=== PATIENT | female | born 1960 | race Two or more races ===

== ENCOUNTER 2018-05-19 09:25 | Outpatient (CLI) | payer OTHER ==
[~2018-05-19 09:25] MED LIST: AMBIEN5 MG; CATAFLAM50 MG; CIPRO500 MG PO; METHOCARBAMOL500 MG PO; NABUMETONE500 MG PO; NORFLEX100 MG; PERCOCET 5/3251 TAB PO; PREVACID30 MG PO; PROVENTIL2.5 MG/3 M; SINGULAIR 10MG10 MG; [UNRECOGNIZED DRUG - OTHER]
== END 2018-05-19 09:54 | disposition home or self-care (01) ==
LOC: RAD 09:25
DX: M50.90 Cervical disc disorder, unspecified, unspecified cervical region (principal); M79.1 Myalgia; M51.36 Other intervertebral disc degeneration, lumbar region; M19.141 Post-traumatic osteoarthritis, right hand; M19.142 Post-traumatic osteoarthritis, left hand; M17.2 Bilateral post-traumatic osteoarthritis of knee; M72.2 Plantar fascial fibromatosis

== ENCOUNTER 2018-08-28 09:10 | Emergency (ER) | payer OTHER ==
[~2018-08-28] VITALS: Ht 152.4 cm; Wt 88.0 kg
[2018-08-28] MEDS ORDERED: SKELAXIN800 MG (09:31)
[2018-08-28] MEDS ORDERED: LORZONE750 MG (09:31)
== END 2018-08-28 14:43 | disposition home or self-care (01) ==
LOC: ER 09:10
DX: M54.5 Low back pain (principal)

== ENCOUNTER 2018-10-12 08:19 | Outpatient (CLI) | payer OTHER ==
[~2018-10-12 08:19] MED LIST changes: +LORZONE750 MG; +SKELAXIN800 MG
== END 2018-10-12 08:33 | disposition home or self-care (01) ==
LOC: SONOGRAMA 08:19
DX: R51 Headache (principal); Z76.0 Encounter for issue of repeat prescription; R22.1 Localized swelling, mass and lump, neck

== ENCOUNTER 2018-11-03 08:12 | Outpatient (CLI) | payer OTHER | END 2018-11-03 08:34 | disposition home or self-care (01) | LOC: LAB 08:12 | DX: R22.1 Localized swelling, mass and lump, neck (principal) ==

== ENCOUNTER 2018-11-05 07:08 | Outpatient (CLI) | payer OTHER | END 2018-11-05 07:21 | disposition home or self-care (01) | LOC: TOM 07:08 | DX: R22.1 Localized swelling, mass and lump, neck (principal) ==

== ENCOUNTER 2018-11-08 06:14 | Inpatient (IN) | payer OTHER ==
[~2018-11-08] VITALS: Ht 157.5 cm; Wt 90.7 kg
== END 2018-11-19 19:44 | disposition home or self-care (01) | DRG 392 ==
LOC: ER 06:14 → SEC-K 14:45 → SURG 14:45
PROVIDERS: ADMIT Surgery
PROC: BW21ZZZ Computerized Tomography (CT Scan) of Abdomen and Pelvis (ICD-10-PCS; principal; 2018-11-08)
PROC: BW21Y0Z Computerized Tomography (CT Scan) of Abdomen and Pelvis using Other Contrast, Unenhanced and Enhanced (ICD-10-PCS; 2018-11-08)
PROC: 3E0F7GC Introduction of Other Therapeutic Substance into Respiratory Tract, Via Natural or Artificial Opening (ICD-10-PCS; 2018-11-09)
PROC: 3E0336Z Introduction of Nutritional Substance into Peripheral Vein, Percutaneous Approach (ICD-10-PCS; 2018-11-09)
PROC: 02HV33Z Insertion of Infusion Device into Superior Vena Cava, Percutaneous Approach (ICD-10-PCS; 2018-11-09)
DX: K57.20 Diverticulitis of large intestine with perforation and abscess without bleeding (principal); J45.909 Unspecified asthma, uncomplicated; B96.3 Hemophilus influenzae [H. influenzae] as the cause of diseases classified elsewhere

== ENCOUNTER 2018-12-14 09:03 | Outpatient (CLI) | payer OTHER | END 2018-12-14 09:12 | disposition home or self-care (01) | LOC: LAB 09:03 | DX: R10.13 Epigastric pain (principal); R19.8 Other specified symptoms and signs involving the digestive system and abdomen ==

== ENCOUNTER 2018-12-14 12:40 | Outpatient (CLI) | payer OTHER | END 2018-12-14 12:58 | disposition home or self-care (01) | LOC: TOM 12:40 | DX: K57.90 Diverticulosis of intestine, part unspecified, without perforation or abscess without bleeding (principal) ==

== ENCOUNTER 2018-12-22 08:54 | Outpatient (CLI) | payer OTHER | END 2018-12-22 14:42 | disposition home or self-care (01) | LOC: LAB 08:54 | DX: R19.8 Other specified symptoms and signs involving the digestive system and abdomen (principal) ==

== ENCOUNTER 2019-01-06 08:19 | Outpatient (CLI) | payer OTHER | END 2019-01-06 08:27 | disposition home or self-care (01) | LOC: SONOGRAMA 08:19 | DX: R22.1 Localized swelling, mass and lump, neck (principal) ==

== ENCOUNTER 2019-02-18 06:25 | Outpatient (CLI) | payer OTHER | END 2019-02-18 15:00 | disposition home or self-care (01) | LOC: LAB 06:25 | DX: E78.49 Other hyperlipidemia (principal); R19.7 Diarrhea, unspecified; Z71.89 Other specified counseling ==

== ENCOUNTER 2019-05-02 12:26 | Outpatient (CLI) | payer OTHER | END 2019-05-02 12:34 | disposition home or self-care (01) | LOC: LAB 12:26 | DX: R19.5 Other fecal abnormalities (principal) ==

== ENCOUNTER 2019-07-20 08:13 | Outpatient (CLI) | payer OTHER ==
[~2019-07-20 08:13] MED LIST changes: +CELEBREX200MG PO; +SKELAXIN800 MG PO
[2019-07-20] MEDS ORDERED: NEURONTIN300 MG PO (09:53)
== END 2019-07-20 08:32 | disposition home or self-care (01) ==
LOC: SONOGRAMA 08:13 → MAMO-SONO 11:15
DX: M50.90 Cervical disc disorder, unspecified, unspecified cervical region (principal); M79.18 Myalgia, other site; M51.36 Other intervertebral disc degeneration, lumbar region; M76.60 Achilles tendinitis, unspecified leg

== ENCOUNTER 2019-11-22 16:28 | Emergency (ER) | payer OTHER ==
[~2019-11-22] VITALS: Ht 152.4 cm; Wt 84.4 kg
[~2019-11-22 16:28] MED LIST changes: +NEURONTIN300 MG PO
== END 2019-11-22 21:21 | disposition home or self-care (01) ==
LOC: ER 16:28
DX: M54.5 Low back pain (principal)

== ENCOUNTER 2020-03-15 12:45 | Outpatient (CLI) | payer OTHER | END 2020-03-15 13:04 | disposition home or self-care (01) | LOC: MAMO-SONO 12:45 | PROVIDERS: ATTEND Obstetrics & Gynecology | DX: Z12.31 Encounter for screening mammogram for malignant neoplasm of breast (principal); N64.4 Mastodynia; N94.89 Other specified conditions associated with female genital organs and menstrual cycle ==

== ENCOUNTER 2021-05-30 10:12 | Outpatient (CLI) | payer OTHER | END 2021-05-30 10:17 | disposition home or self-care (01) | LOC: SONOGRAMA 10:12 | PROVIDERS: ATTEND Specialist | DX: R10.84 Generalized abdominal pain (principal); M50.90 Cervical disc disorder, unspecified, unspecified cervical region; M79.18 Myalgia, other site; M51.36 Other intervertebral disc degeneration, lumbar region; M76.60 Achilles tendinitis, unspecified leg; M19.071 Primary osteoarthritis, right ankle and foot; M76.61 Achilles tendinitis, right leg; M79.671 Pain in right foot; M79.672 Pain in left foot; M25.571 Pain in right ankle and joints of right foot; M25.572 Pain in left ankle and joints of left foot ==

== ENCOUNTER 2021-06-12 09:55 | Outpatient (CLI) | payer OTHER | END 2021-06-12 10:00 | disposition home or self-care (01) | LOC: NUCLEAR 09:55 | PROVIDERS: ATTEND Specialist | DX: I87.303 Chronic venous hypertension (idiopathic) without complications of bilateral lower extremity (principal); R60.9 Edema, unspecified ==

== ENCOUNTER 2021-08-08 07:19 | Outpatient (CLI) | payer OTHER | END 2021-08-08 07:40 | disposition home or self-care (01) | LOC: TOM 07:19 | PROVIDERS: ATTEND General Practice | DX: K57.90 Diverticulosis of intestine, part unspecified, without perforation or abscess without bleeding (principal); K44.9 Diaphragmatic hernia without obstruction or gangrene; R19.5 Other fecal abnormalities; M25.571 Pain in right ankle and joints of right foot; M77.31 Calcaneal spur, right foot; M77.32 Calcaneal spur, left foot; R10.84 Generalized abdominal pain ==

== ENCOUNTER 2021-08-12 13:19 | Outpatient (CLI) | payer OTHER | END 2021-08-12 13:21 | disposition home or self-care (01) | LOC: NUCLEAR 13:19 | PROVIDERS: ATTEND Specialist | DX: M81.0 Age-related osteoporosis without current pathological fracture (principal) ==

== ENCOUNTER 2023-07-17 09:48 | Outpatient (CLI) | payer OTHER | END 2023-07-17 09:58 | disposition home or self-care (01) | LOC: RAD 09:48 | PROVIDERS: ATTEND General Practice | DX: M50.30 Other cervical disc degeneration, unspecified cervical region (principal); M48.00 Spinal stenosis, site unspecified; M17.0 Bilateral primary osteoarthritis of knee; M19.90 Unspecified osteoarthritis, unspecified site ==

== ENCOUNTER → 2023-07-20 | Outpatient (CLI) | payer OTHER | END | disposition home or self-care (01) | LOC: MAMO-SONO 11:45 | DX: N60.29 Fibroadenosis of unspecified breast (principal); R94.6 Abnormal results of thyroid function studies; D36.7 Benign neoplasm of other specified sites; N60.99 Unspecified benign mammary dysplasia of unspecified breast; Z12.31 Encounter for screening mammogram for malignant neoplasm of breast ==

== ENCOUNTER 2023-07-23 12:15 | Outpatient (CLI) | payer OTHER | END 2023-07-23 12:16 | disposition home or self-care (01) | LOC: NUCLEAR 12:15 | PROVIDERS: ATTEND Specialist | DX: M85.9 Disorder of bone density and structure, unspecified (principal) ==

== ENCOUNTER 2024-07-26 10:05 | Outpatient (CLI) | payer OTHER | END 2024-07-26 10:22 | disposition home or self-care (01) | LOC: SONOGRAMA 10:05 | PROVIDERS: ATTEND Specialist | DX: M50.90 Cervical disc disorder, unspecified, unspecified cervical region (principal); M79.10 Myalgia, unspecified site; M17.10 Unilateral primary osteoarthritis, unspecified knee; M76.60 Achilles tendinitis, unspecified leg; M72.2 Plantar fascial fibromatosis; M65.871 Other synovitis and tenosynovitis, right ankle and foot; M76.61 Achilles tendinitis, right leg ==

== ENCOUNTER 2025-03-01 06:10 | Outpatient (CLI) | payer OTHER ==
[2025-03-01 07:19] LABS: BASO % 0.7 % (0.1-1.2); EOS # 0.18 (0.04-0.54); EOS % 2.4 % (0.7-7.0); HEMATOCRIT 36.4 % (34.1-44.9); LYMPH # 2.09 (1.18-3.74); LYMPH % 28.4 % (19.3-53.1); MEAN CORPUSCULAR HEMOGLOBIN 30.8 pg (25.6-32.2); MONO # 0.66 (0.24-0.82); NEUT # 4.36 (1.56-6.13); NEUT % 59.4 % (34.0-71.1); PLATELET COUNT 319 K/uL (163-369); RED BLOOD COUNT 3.89 M/uL (3.93-5.22); RED CELL DISTRIBUTION WIDTH 12.6 % (11.6-14.4)
[2025-03-01 08:16] LABS: ALBUMIN 3.8 gm/dL (3.4-5.0); BILIRUBIN TOTAL 0.57 mg/dL (0.3-1.2); CALCIUM 9.6 mg/dL (8.5-10.1); CHOL HDL RATIO 2.1 (0-5.0); CREATININE SERUM 0.91 mg/dL (0.55-1.02); GFR 62.24; PHOSPHOROUS 3.5 mg/dL (2.5-4.9); POTASSIUM 3.45 mEq/L (3.5-5.1); T4 FREE 1.13 NG/ML (0.76-1.46); TOTAL PROTEIN 7.8 gm/dL (6.4-8.2); TSH 3.05 uIU/mL (0.358-3.74)
[2025-03-01 09:12] LABS: RH POSITIVE
== END 2025-03-01 06:11 | disposition home or self-care (01) ==
LOC: LAB 06:10
DX: E78.00 Pure hypercholesterolemia, unspecified (principal); E11.65 Type 2 diabetes mellitus with hyperglycemia; E78.2 Mixed hyperlipidemia; E55.9 Vitamin D deficiency, unspecified; I10 Essential (primary) hypertension; D50.8 Other iron deficiency anemias; C73 Malignant neoplasm of thyroid gland

== ENCOUNTER 2025-03-01 07:29 | Outpatient (CLI) | payer OTHER | END 2025-03-01 07:30 | disposition home or self-care (01) | LOC: NUCLEAR 07:29 | PROVIDERS: ATTEND Specialist | DX: I87.303 Chronic venous hypertension (idiopathic) without complications of bilateral lower extremity (principal); I87.2 Venous insufficiency (chronic) (peripheral) ==

== ENCOUNTER 2025-05-25 17:15 | Inpatient (IN) | payer OTHER ==
[~2025-05-25] VITALS: Ht 152.4 cm; Wt 75.7 kg
[2025-05-25] MEDS ORDERED: 0.9 % SODIUM CHLORIDE 500 ML IV ONE (18:00)
[2025-05-25] MEDS ORDERED: ORPHENADRINE CITRATE 30 MG/ML AMPUL IM ONE (18:00)
[2025-05-25 18:13] LABS: BASO % 0.2 % (0.1-1.2); EOS # 0.02 (0.04-0.54); EOS % 0.1 % (0.7-7.0); LYMPH # 2.24 (1.18-3.74); LYMPH % 13.9 % (19.3-53.1); MEAN PLATELET VOLUME 9.80 fl (9.4-12.4); MONO # 1.33 (0.24-0.82); MONO % 8.3 % (4.7-12.5); NEUT # 12.43 (1.56-6.13); NEUT % 77.2 % (34.0-71.1); RED CELL DISTRIBUTION WIDTH 12.1 % (11.6-14.4)
[2025-05-25 18:45] LABS: ALT/SGPT 17.0 U/L (12-78); AST/SGOT 17.0 U/L (15-37); BILIRUBIN TOTAL 0.94 mg/dL (0.3-1.2); BUN CREA RATIO 19.0 (7.0-25.0); CREATININE SERUM 0.99 mg/dL (0.55-1.02); GFR 56.47; GLOBULINA 4.9 G/DL (2.4-3.5); GLUCOSE FASTING 76.0 mg/dL (65-100); OSMOLALITY SERUM 277.0 MOSM/KG (275-295)
[2025-05-25 21:05] LABS: URINE APPEARANCE Clear; URINE BILIRRUBIN Negative (NEGATIVE); URINE BLOOD Moderate; URINE COLOR Dark Yellow; URINE GLUCOSE Negative (NEGATIVE); URINE LEUKOCYTE Small; URINE NITRATE Negative; URINE PROTEIN Negative (NEGATIVE); URINE UROBILINOGEN 1.0 E.U./dl
[2025-05-25 21:09] LABS: URINE BACTERIA 7658.2 uL (0.0-1933); URINE CAST 3.66 uL (0.0-1.40); URINE EPITHELIAL CELLS 15.0 uL (0.0-38.8); URINE RBC 37.8 uL (0.0-20.8); URINE WBC 316.5 uL (0.0-23.2)
[2025-05-25 21:32] LABS: URINE KETONE 40 (NEGATIVE)
[2025-05-25] MEDS ORDERED: FAMOTIDINE/PF 20 MG in 0.9 % SODIUM CHLORIDE 8 ML IV PUSH SCH (23:19)
[2025-05-25] MEDS ORDERED: ONDANSETRON HCL 4 MG in 0.9 % SODIUM CHLORIDE 50 ML IV PRN (23:30)
[2025-05-25] MEDS ORDERED: MORPHINE SULFATE 4 MG/ML CARTRIDGE IV PRN (23:30)
[2025-05-25] MEDS ORDERED: 0.9 % SODIUM CHLORIDE 1,000 ML IV SCH (23:30)
[2025-05-25] MEDS ORDERED: ACETAMINOPHEN 500 MG GEL..CAP PO PRN (23:30)
[2025-05-26] MEDS ORDERED: PIPERACILLIN/TAZOBACTAM SODIUM 3.375 GM in DEXTROSE 5 % IN WATER 100 ML IV SCH
[2025-05-26 03:21] LABS: INR 1.12
[2025-05-26 08:00] VITALS: BP 104/66; O2SAT 97
[2025-05-26] MEDS ORDERED: GABAPENTIN 300 MG CAPSULE PO SCH (09:00)
[2025-05-26] MEDS ORDERED: ROSUVASTATIN CALCIUM 20 MG TABLET PO SCH (09:00)
[2025-05-26] MEDS ORDERED: IRBESARTAN 300 MG TABLET PO SCH (09:00)
[2025-05-26] MEDS ORDERED: ENOXAPARIN SODIUM 40 MG/0.4 ML SYRINGE SUBCUTANEO SCH (09:00)
[2025-05-26 16:06] VITALS: BP 101/64; O2SAT 97
[2025-05-27 01:00] VITALS: BP 93/53; O2SAT 95
[2025-05-27 02:00] VITALS: BP 113/71
[2025-05-27 08:36] VITALS: BP 90/56; O2SAT 96
[2025-05-27 17:50] VITALS: BP 100/66; O2SAT 96
[2025-05-28 03:03] VITALS: BP 105/62; O2SAT 98
[2025-05-28 08:00] VITALS: BP 89/56; O2SAT 97
[2025-05-28 08:06] VITALS: BP 89/56; O2SAT 97
== END 2025-05-28 16:54 | disposition home or self-care (01) | DRG 391 ==
LOC: ER 17:15 → SURG 23:20 → MEDI 23:20 → SURG 05-26 00:05
PROVIDERS: General Practice; ADMIT Student in an Organized Health Care Education/Training Program; ATTEND Student in an Organized Health Care Education/Training Program
PROC: BW21ZZZ Computerized Tomography (CT Scan) of Abdomen and Pelvis (ICD-10-PCS; principal; 2025-05-25)
DX: K57.92 Diverticulitis of intestine, part unspecified, without perforation or abscess without bleeding (principal); A41.9 Sepsis, unspecified organism; R65.10 Systemic inflammatory response syndrome (SIRS) of non-infectious origin without acute organ dysfunction

== ENCOUNTER 2025-09-17 03:04 | Emergency (ER) | payer OTHER ==
[~2025-09-17] VITALS: Ht 152.4 cm; Wt 65.3 kg
[2025-09-17] MEDS ORDERED: MORPHINE SULFATE 4 MG/ML CARTRIDGE IV STA (05:12)
[2025-09-17] MEDS ORDERED: PANTOPRAZOLE SODIUM 40 MG/VIAL VIAL IV STA (05:13)
[2025-09-17] MEDS ORDERED: ONDANSETRON HCL 2 MG/ML VIAL ONE (05:31)
[2025-09-17 07:47] LABS: BASO % 0.3 % (0.1-1.2); EOS # 0.07 (0.04-0.54); EOS % 0.6 % (0.7-7.0); LYMPH # 0.96 (1.18-3.74); LYMPH % 8.3 % (19.3-53.1); MEAN PLATELET VOLUME 10.20 fl (9.4-12.4); MONO # 0.53 (0.24-0.82); MONO % 4.6 % (4.7-12.5); NEUT # 9.95 (1.56-6.13); NEUT % 85.9 % (34.0-71.1); RED CELL DISTRIBUTION WIDTH 12.7 % (11.6-14.4)
[2025-09-17 08:09] LABS: BUN CREA RATIO 21.0 (7.0-25.0); CREATININE SERUM 0.68 mg/dL (0.55-1.02); GFR 87.11; GLUCOSE FASTING 87.0 mg/dL (65-100); OSMOLALITY SERUM 281.0 MOSM/KG (275-295)
[2025-09-17] MEDS ORDERED: DEXAMETHASONE SODIUM PHOSPHATE 4 MG/ML VIAL IV STA (10:19)
[2025-09-17] MEDS ORDERED: ORPHENADRINE CITRATE 30 MG/ML AMPUL IV STA (10:20)
[2025-09-17] MEDS ORDERED: KETOROLAC TROMETHAMINE 30 MG VIAL IV ONE (10:30)
[2025-09-17] MEDS ORDERED: KETOROLAC TROMETHAMINE 30 MG VIAL ONE (10:59)
[2025-09-17] MEDS ORDERED: DEXAMETHASONE SODIUM PHOSPHATE 4 MG/ML VIAL ONE (10:59)
[2025-09-17] MEDS ORDERED: ORPHENADRINE CITRATE 30 MG/ML AMPUL ONE (10:59)
[2025-09-17 11:27] LABS: URINE APPEARANCE Clear; URINE BILIRRUBIN Negative (NEGATIVE); URINE BLOOD Negative; URINE COLOR Yellow; URINE GLUCOSE Negative (NEGATIVE); URINE KETONE Negative (NEGATIVE); URINE LEUKOCYTE Negative; URINE NITRATE Negative; URINE PROTEIN Negative (NEGATIVE); URINE UROBILINOGEN 0.2 E.U./dl
[2025-09-17] MEDS ORDERED: CIPROFLOXACIN IN 5 % DEXTROSE 400 MG/200 ML PIGGYBAG IV STA (11:27)
[2025-09-17] MEDS ORDERED: METRONIDAZOLE/SODIUM CHLORIDE 500 MG/100 ML PIGGYBACK IV STA (11:28)
[2025-09-17] MEDS ORDERED: CIPROFLOXACIN IN 5 % DEXTROSE 400 MG/200 ML PIGGYBAG IV ONE (11:32)
[2025-09-17 11:33] LABS: URINE BACTERIA 29.7 uL (0.0-1933); URINE EPITHELIAL CELLS 2.1 uL (0.0-38.8); URINE RBC 7.5 uL (0.0-20.8); URINE WBC 25.2 uL (0.0-23.2)
[2025-09-17] MEDS ORDERED: METRONIDAZOLE/SODIUM CHLORIDE 500 MG/100 ML PIGGYBACK IV ONE (11:33)
[2025-09-17 11:50] LABS: URINE CAST 0.00 uL (0.0-1.40)
[2025-09-17 11:53] LABS: COVID-19 AG NEGATIVE (NEGATIVE)
[2025-09-17] MEDS ORDERED: ZITHROMAX200 MG PO (13:18)
[2025-09-17] MEDS ORDERED: NORFLEX100MG PO (13:18)
[2025-09-17] MEDS ORDERED: IBU600 MG PO (13:18)
== END 2025-09-17 13:42 | disposition home or self-care (01) ==
LOC: ER 03:04
PROVIDERS: General Practice; Physician Assistant Medical
DX: J98.8 Other specified respiratory disorders (principal); K57.30 Diverticulosis of large intestine without perforation or abscess without bleeding; M54.89 Other dorsalgia; Z20.822 Contact with and (suspected) exposure to COVID-19
CPT/HCPCS: 36415; 74176; 96365; 96366; 99283; J0744; J1100; J1885; J2270; J2360; J3490